=== PATIENT | male | born 2000 | race Caucasian/White ===

== ENCOUNTER 2021-02-14 17:19 | Inpatient (IN) ==
[2021-02-14] MEDS ORDERED: Ondansetron ODT 4 mg TAB 4 MG TAB PO ONE (17:40)
[2021-02-14 20:36] LABS: Hematocrit 45 % (42-52); Hemoglobin 15.5 g/dL (14.0-18.0); Mean Corpuscular HGB Conc 35 g/dL (31-36); Mean Corpuscular Hemoglobin 29 pg (27-31); Mean Corpuscular Volume 83 fL (80-94); Mean Platelet Volume 9.1 fL (7.4-10.4); Platelet Count 140 10^3/uL (150-450); Red Blood Count 5.44 10^6 /uL (4.18-5.48); Red Cell Distribution Width 14 % (10-15); White Blood Count 11.8 10^3/uL (3.5-10.8)
[2021-02-14 20:53] LABS: ALT 288 U/L (7-52); AST 220 U/L (13-39); Albumin/Globulin Ratio 1.2 (1-3); Alkaline Phosphatase 176 U/L (35-149); Blood Urea Nitrogen 11 mg/dL (6-24); CO2 Carbon Dioxide 32 mmol/L (22-32); Calcium 9.6 mg/dL (8.6-10.3); Chloride 95 mmol/L (101-111); Globulin 3.3 g/dL (2-4); Glucose 114 mg/dL (70-100); Lipase 43 U/L (11.0-82.0); Sodium 135 mmol/L (135-145); Total Protein 7.3 g/dL (6.4-8.9)
[2021-02-14 20:55] LABS: Anion Gap 8 mmol/L (2-11); Potassium 5.1 mmol/L (3.5-5.0)
[2021-02-14 22:15] LABS: ABS Basophils 0.1 10^3/ul (0-0.2); ABS Lymphocytes 8.6 10^3/ul (1.0-4.8); ABS Monocytes 1.1 10^3/ul (0-0.8); ABS Neutrophils 1.9 10^3/ul (1.5-7.7); Eosinophil % 0.3 %; Nucleated Red Blood Cells % 0.3; RBC Morphology Normal (Normal)
[2021-02-15 02:24] LABS: Hepatitis B Surface Antigen Nonreactive (Nonreactive)
[2021-02-15 02:29] LABS: Hepatitis A Ab IgM Negative (Negative)
[2021-02-15 02:30] LABS: Hepatitis B Core IgM Nonreactive (Nonreactive)
[2021-02-15 02:42] LABS: Hepatitis C Antibody Negative (Negative)
[2021-02-15 03:17] LABS: Rapid COVID-19 Molecular Undetected (Undetected)
[2021-02-15] MEDS ORDERED: Ondansetron 4 mg VIAL 2 MG/ML 2 ml VIAL IV PRN (03:40)
[2021-02-15 04:32] LABS: Cholesterol 82 mg/dL; HDL Cholesterol 11.6 mg/dL; LDL Cholesterol 40 mg/dL; Triglycerides 154 mg/dL
[2021-02-15] MEDS: NS 0.9% 1000 ml BAG 1,000 ML IV SCH ×2 (04:49→16:47)
[2021-02-15 04:51] LABS: Indirect Bilirubin 1.6 mg/dL (0.3-1.0)
[2021-02-15 05:07] LABS: Ferritin 1241.1 ng/mL (24-336)
[2021-02-15 06:08] LABS: Total Iron Binding Capacity 360 mcg/dL (250-450); Transferrin 257 mg/dL (203-362)
[2021-02-15 07:36] LABS: % Iron Saturation 29 % (15-55); Iron 95 ug/dL (50-212); LDH 622 U/L (140-271); Total Iron Binding Capacity 328 mcg/dL (250-450); Transferrin 234 mg/dL (203-362); Unsaturated Iron Binding < 313 ug/dL
[2021-02-15 19:54] LABS: HIV 4th Generation Nonreactive (Nonreactive)
[2021-02-15 20:40] LABS: Urine Appearance Clear; Urine Bilirubin Negative (Negative); Urine Blood Negative (Negative); Urine Color Amber; Urine Glucose Negative (Negative); Urine Ketones Trace (Negative); Urine Nitrite Negative (Negative); Urine Protein Negative (Negative); Urine Specific Gravity 1.009 (1.002-1.030); Urine Urobilinogen Positive (Negative)
[2021-02-16 06:29] LABS: Hematocrit 41 % (42-52); Mean Corpuscular HGB Conc 34 g/dL (31-36); Mean Corpuscular Hemoglobin 29 pg (27-31); Mean Corpuscular Volume 83 fL (80-94); Mean Platelet Volume 9.3 fL (7.4-10.4); Platelet Count 164 10^3/uL (150-450); Red Blood Count 4.91 10^6 /uL (4.18-5.48); Red Cell Distribution Width 14 % (10-15); White Blood Count 11.7 10^3/uL (3.5-10.8)
[2021-02-16 06:37] LABS: INR 1.11 (0.86-1.15)
[2021-02-16 06:40] LABS: Anion Gap 6 mmol/L (2-11); Blood Urea Nitrogen 11 mg/dL (6-24); CO2 Carbon Dioxide 27 mmol/L (22-32); Calcium 8.7 mg/dL (8.6-10.3); Chloride 99 mmol/L (101-111); Glucose 102 mg/dL (70-100); Potassium 4.1 mmol/L (3.5-5.0); Sodium 132 mmol/L (135-145)
[2021-02-16 07:55] LABS: ALT 471 U/L (7-52); AST 373 U/L (13-39); Albumin 3.4 g/dL (3.2-5.2); Albumin/Globulin Ratio 1.1 (1-3); Alkaline Phosphatase 204 U/L (35-149); Globulin 3.1 g/dL (2-4); Indirect Bilirubin 1.4 mg/dL (0.3-1.0); Total Protein 6.5 g/dL (6.4-8.9)
[2021-02-16 09:26] VITALS: BP 119/79
[2021-02-16 09:31] LABS: GGTP 129 U/L (9-64.0); Rheumatoid Factor < 10 IU/mL (<15)
[2021-02-17 10:55] LABS: EBV Capsid Ag IgG Ab Positive (Negative); EBV Capsid Ag IgM Ab Positive (Negative); Epstein-Barr Nuclear Antigen Negative (Negative)
[2021-02-17 13:58] LABS: Ceruloplasmin 37.2 mg/dL
[2021-02-18 11:28] LABS: Alpha 1 Antitrypsin A1A 187 mg/dL (100 - 190)
[2021-02-18 12:24] LABS: Immunoglobulin Subclass IgG4 47.9 mg/dL
[2021-02-18 17:48] LABS: Mitochondria M2 Antibody 0.2 U
[2021-02-19 18:42] LABS: Liver/Kidney Microsomes Ab <5.0 U
[2021-02-19 22:46] LABS: Anaplasma phagocytophilum Negative (Negative); B. miyamotoi PCR, B Negative (Negative); Babesia divergens/MO-1 Negative (Negative); Babesia ducani Negative (Negative); Ehrlichia chaffeensis Negative (Negative); Ehrlichia ewingii/canis Negative (Negative); Ehrlichia muris eauclairensis Negative (Negative)
[2021-02-24 17:30] LABS: Soluble Liver Antigen IgG <20.1 U
== END 2021-02-16 11:40 | disposition home or self-care (01) | DRG 866 ==
LOC: ED 17:19 → EDHOLD 02-15 03:32 → SUATTDRO 02-15 03:32 → SSU 02-15 06:52
PROVIDERS: ADMIT Internal Medicine; ATTEND Student in an Organized Health Care Education/Training Program